=== PATIENT | female | born 1950 | race Caucasian/White ===

== ENCOUNTER 2019-09-06 14:38 | Emergency (ER) | payer MEDICARE, OTHER ==
[~2019-09-06] VITALS: Ht 167.6 cm; Wt 84.6 kg
[2019-09-06] MEDS ORDERED: atenolol 25mg tablet PO ONE (16:50)
[2019-09-06] MEDS ORDERED: ATEN-27 PO (16:50)
[2019-09-06] MEDS ORDERED: LORazepam 1 MG tablet PO ONE (17:45)
[2019-09-06 17:54] VITALS: BP 196/101
--- NOTE | 2019-09-06 17:54 | NUR ---
Provider aware of Pt's BP and Ok with discharge at this time. Pt given 1mg of Ativan prior to discharge. Pt sister at bedside to provide ride home.
== END 2019-09-06 17:57 | disposition home or self-care (01) ==
LOC: ER 14:38
DX: I10 Essential (primary) hypertension (principal); F32.9 Major depressive disorder, single episode, unspecified; M25.559 Pain in unspecified hip; E03.9 Hypothyroidism, unspecified; Z85.9 Personal history of malignant neoplasm, unspecified; Z90.49 Acquired absence of other specified parts of digestive tract; Z90.710 Acquired absence of both cervix and uterus; Z79.899 Other long term (current) drug therapy
CPT/HCPCS: 93005; 99283